=== PATIENT | female | born 1945 | race Caucasian/White ===

== ENCOUNTER 2017-03-10 19:33 | Inpatient (IN) | payer OTHER ==
--- NOTE | 2017-03-10 19:36 | PDOC ---
History of Present Illness - General History Source: Patient, Family Exam Limitations: Other - History of Present Illness Initial Comments: 03/10/17 20:03 The patient is a 71 year old female, with a significant past medical history of hypertension, GERD, and MR, who presents to the emergency department s/p witnessed mechanical injury earlier this evening. As per sister, the patient was walking down 2 steps, when she missed a step, twisted her right leg, but never landed, because she caught the patient before she hit the floor. The patient reports severe right leg/thigh/ hip pain, which is mildly alleviated when bending her knee and laying down. Patient was unable to ambulate s/p injury. Patient denies any head trauma, LOC, changes in vision, neck or back pain. Sister reports patient has a history of a femur fracture(unsure which side ), which had to get surgically repaired 2 years ago. Patient denies any fever, chills, headache, dizziness, or lightheadedness. She denies any chest pain, shortness of breath, diaphoresis, or palpitations. She denies any abdominal pain , nausea, vomiting. Allergies: Sulfamethoxazole, trimethoprim Past Surgical History: Femur fracture repair Social History: Non smoker. No ETOH or recreational drug use. <Carmine Siddiqi - Last Filed: 03/10/17 20:44> <Deisy Hernandez - Last Filed: 03/14/17 01:53> - General Chief Complaint: Injury Stated Complaint: LEG INJURY Time Seen by Provider: 03/10/17 19:36 Past History <Carmine Siddiqi - Last Filed: 03/10/17 20:44> <Deisy Hernandez - Last Filed: 03/14/17 01:53> - Past Medical History Allergies/Adverse Reactions: Allergies Allergy/AdvReac Type Severity Reaction Status Date / Time sulfamethoxazole Allergy Mild Rash Verified 03/10/17 21:12 [From Bactrim] trimethoprim [From Bactrim] Allergy Mild Rash Verified 03/10/17 21:12 Home Medications: Ambulatory Orders C/Sourcherry/Celery/Grape Seed [Tart Manzano Capsule] 2 each PO DAILY 03/10/17 Cholecalciferol (Vitamin D3) [Vitamin D3] 2,000 unit PO DAILY 03/10/17 Citalopram Hydrobromide [Citalopram HBr] 20 mg PO DAILY 03/10/17 Citrucel 03/10/17 Hydrochlorothiazide 25 mg PO DAILY 03/10/17 Hypromellose 0.5% Opth Soln [Artificial Tears] 1 - 2 drop OP DAILY 03/10/17 Magnesium Oxide [Magnesium] 400 mg PO DAILY 03/10/17 Mesalamine [Apriso] 4 cap PO DAILY 03/10/17 Omeprazole 40 mg PO DAILY 03/10/17 Review of Systems - Review of Systems Able to Perform ROS?: Yes Comments:: 03/10/17 20:04 CONSTITUTIONAL: Absent: fever, no chills, no fatigue EYES: Absent: visual changes ENT: Absent: ear pain, no sore throat CARDIOVASCULAR: Absent: chest pain, no palpitations RESPIRATORY: Absent: cough, no SOB GI: Absent: abdominal pain, no nausea, no vomiting, no constipation, no diarrhea GENITOURINARY: Absent: dysuria, no frequency, no hematuria MUSCULOSKELETAL: Present: Right leg pain/thigh/hip pain Absent: back pain, no arthralgia, no myalgia SKIN: Absent: rash NEURO: Absent: headache <Siddiqi,Giomilsy - Last Filed: 03/10/17 20:44> *Physical Exam - Vital Signs Last Vital Signs Temp Pulse Resp BP Pulse Ox 97.5 F L 103 H 18 170/98 97 03/10/17 19:34 03/10/17 19:34 03/10/17 19:34 03/10/17 19:34 03/10/17 19:34 - Physical Exam Comments: 03/10/17 20:04 GENERAL: The patient is awake, alert, and fully oriented, in mild distress. Mildly uncooperative on exam due to pain. HEAD: Normal with no signs of trauma. EYES: Pupils equal, round and reactive to light, extraocular movements intact, sclera anicteric, conjunctiva clear with no pallor. ENT: Ears normal, nares patent, oropharynx clear without exudates. Moist mucous membranes. NECK: Normal range of motion, supple without lymphadenopathy, JVD, or masses. LUNGS: Breath sounds equal, clear to auscultation bilaterally. No wheeze/ crackles. HEART: Regular rate and rhythm, normal S1 and S2 without murmur or rub. ABDOMEN: Soft/nontender/nondistended. BS wnl. No guarding or rebound. No palpable masses. No hepatosplenomegaly. EXTREMITIES: Tenderness of the proximal right thigh/right anterior hip area, RLE is held with knee in flexion, no deformity or edema noted. There is no pelvic tenderness to palpation. Right knee, lower leg, ankle, and foot are nonedematous nontender and with no appreciable deformities. The distal extremity is warm with good capillary refill. DP pulse is nonpalpable. Right foot is not rotate. Limited ROM to RLE secondary to pain. Otherwise, normal ROM at the remainder of the extremities, no edema. No clubbing or cyanosis. No cords , erythema, or tenderness. NEUROLOGICAL: Cranial nerves II through XII grossly intact. Normal speech. PSYCH: Normal mood, normal affect. SKIN: Warm, Dry, normal turgor, no rashes or lesions noted. <Carmine Siddiqi - Last Filed: 03/10/17 20:44> ED Treatment Course - LABORATORY CBC & Chemistry Diagram: 03/13/17 18:00 03/12/17 07:22 <Deisy Hernandez - Last Filed: 03/14/17 01:53> Medical Decision Making - Medical Decision Making Documentation has been prepared under my direction and personally reviewed by me in its entirety. I attest that this documented accurately reflects all work, treatment, procedures and medical decision making performed by me. 03/10/17 21:48 As noted above, this 71-year-old woman with history of hypertension/GERD/mild mental retardation tripped while descending stairs just prior to presentation. Patient twisted her lower body but was caught by her sister and [id number] prior to impacting. However, after the injury, she was unable to bear weight on the right side. Patient has a history of left femur fracture with similar mechanism. Right femur x-ray reveals markedly displaced midshaft right femur fracture. [facility] on-call: Dr. Flores contacted and case discussed with him. Patient will be plan for ORIF tomorrow. The patient is visiting from [place] and has no general medical doctor on staff here. [facility] hospitalist service will be contacted regarding admission and operative clearance Case was discussed with GLEN Del Cid. Patient admitted to the hospitalist service <Deisy Hernandez - Last Filed: 03/14/17 01:53> *DC/Admit/Observation/Transfer - Attestations Scribe Attestion: 03/10/17 20:05 Documentation prepared by Carmine Siddiqi, acting as mobile paramedical examiner for Deisy Hernandez MD. <Carmine Siddiqi - Last Filed: 03/10/17 20:44> - Discharge Dispostion Admit: Yes <Deisy Hernandez - Last Filed: 03/14/17 01:53> Diagnosis at time of Disposition: Right femoral shaft fracture Qualifiers: Encounter type: initial encounter Fracture type: closed Fracture morphology: transverse Fracture alignment: displaced Qualified Code(s): S72.321A - Displaced transverse fracture of shaft of right femur, initial encounter for closed fracture - Discharge Dispostion Condition at time of disposition: Guarded
[2017-03-10 20:00] VITALS: BMI 34.6
[2017-03-10] MEDS ORDERED: morphine CARPU-JECT 2 MG/1 ML DISP.SYRIN IM ONE (20:02)
[2017-03-10] MEDS ORDERED: morphine CARPU-JECT 2 MG/1 ML DISP.SYRIN ONE ×2 (20:06→21:04)
[2017-03-10] MEDS ORDERED: morphine CARPU-JECT 2 MG/1 ML DISP.SYRIN IVPUSH ONE (21:04)
[2017-03-10 21:24] LABS: INR 0.95 (0.82-1.09); PROTHROMBIN TIME (PATIENT) 10.6 SEC (10.2-13.0)
[2017-03-10 21:29] LABS: BASOPHIL 0.4 % (0-2.0); EOSINOPHIL 1.8 % (0-4.5); MCH 29.2 pg (25.7-33.7); MCHC 33.4 g/dl (32.0-36.0); MEAN CELL VOLUME 87.6 fl (80-96); MEAN PLT VOLUME 8.8 fl (7.5-11.1); NEUTROPHILS 82.9 % (42.8-82.8); PLATELET COUNT 239 K/MM3 (134-434); RDW 13.9 % (11.6-15.6)
[2017-03-10 21:38] LABS: ALK PHOS 79 U/L (32-92); ANION GAP 9 (8-16); BILIRUBIN,TOTAL 0.5 mg/dl (0.2-1.0); CALCIUM 9.7 mg/dl (8.4-10.2); CO2 21 mmol/L (22-28); CPK 110 IU/L (26-192); CREATININE 1.1 mg/dl (0.6-1.3); GLUCOSE,RANDOM 159 mg/dl (74-106); SGOT/AST 19 U/L (10-42); SGPT/ALT 15 U/L (10-40); TOT PROT 7.3 g/dl (6.4-8.3)
[2017-03-10 21:40] LABS: PH,URINE 5.5 (4.5-8); URINE APPEARANCE Clear; URINE BILIRUBIN Negative (NEGATIVE); URINE GLUCOSE (UA) Negative (NEGATIVE); URINE KETONE Negative (NEGATIVE); URINE LEUK ESTERASE Negative (NEGATIVE); URINE NITRITE Negative (NEGATIVE); URINE PROTEIN Negative (NEGATIVE); URINE UROBILINOGEN 0.2 (0.2-1.0)
[2017-03-10 21:42] LABS: URINE BLOOD Trace-intact (NEGATIVE); URINE COLOR YELLOW
[2017-03-10 21:56] LABS: URINE WBC 0-2 (0-5)
[2017-03-10 21:58] LABS: TROPONIN I (DFP) < 0.03 ng/ml (0.03-0.50)
[2017-03-10] MEDS ORDERED: morphine SULFATE 4 MG/ML VIAL ONE (22:13)
[2017-03-10] MEDS ORDERED: morphine CARPU-JECT 4 MG/1 ML DISP.SYRIN IVPUSH ONE (22:16)
--- NOTE | 2017-03-10 23:29 | HP ---
CHIEF COMPLAINT: right leg pain s/p twisting injury PCP: not on staff HISTORY OF PRESENT ILLNESS: This is a 71 year old female, with a significant past medical history of hypertension, GERD, and MR, who presents to the emergency department s/p witnessed mechanical injury earlier this evening. Per sister, the patient was walking down 2 steps, when she missed a step, twisted her right leg, but never fell because she caught the patient before she hit the floor. The patient reports severe right leg/thigh/ hip pain, which is mildly alleviated when bending her knee and laying down. Patient was unable to ambulate s/p injury. Patient denies any head trauma, LOC, changes in vision, neck or back pain. Sister reports patient has a history of a femur fracture( unsure which side), which had to get surgically repaired 2 years ago. Patient denies any fever, chills, headache, dizziness, or lightheadedness. She denies any chest pain, shortness of breath, diaphoresis, or palpitations. She denies any abdominal pain, nausea, vomiting. ER course was notable for: (1) Right mid-shaft femur fracture (2) Leukocytosis Recent Travel: denies PAST MEDICAL HISTORY: see HPI PAST SURGICAL HISTORY: see HPI Social History: Smoking: denies Alcohol: denies Drugs: denies Family History: Allergies sulfamethoxazole [From Bactrim] Allergy (Mild, Verified 03/10/17 21:12) Rash trimethoprim [From Bactrim] Allergy (Mild, Verified 03/10/17 21:12) Rash HOME MEDICATIONS: Home Medications Medication Instructions Recorded C/Sourcherry/Celery/Grape Seed 2 each PO DAILY 03/10/17 [Tart Manzano Capsule] Cholecalciferol (Vitamin D3) 2,000 unit PO DAILY 03/10/17 [Vitamin D3] Citalopram Hydrobromide 20 mg PO DAILY 03/10/17 [Citalopram HBr] Citrucel 03/10/17 Hydrochlorothiazide 25 mg PO DAILY 03/10/17 Hypromellose 0.5% Opth Soln 1 - 2 drop OP DAILY 03/10/17 [Artificial Tears] Magnesium Oxide [Magnesium] 400 mg PO DAILY 03/10/17 Mesalamine [Apriso] 4 cap PO DAILY 03/10/17 Omeprazole 40 mg PO DAILY 03/10/17 REVIEW OF SYSTEMS CONSTITUTIONAL: Absent: fever, chills, diaphoresis, generalized weakness, malaise, loss of appetite, weight change HEENT: Absent: rhinorrhea, nasal congestion, throat pain, throat swelling, difficulty swallowing, mouth swelling, ear pain, eye pain, visual changes CARDIOVASCULAR: Absent: chest pain, syncope, palpitations, irregular heart rate, lightheadedness , peripheral edema RESPIRATORY: Absent: cough, shortness of breath, dyspnea with exertion, orthopnea, wheezing, stridor, hemoptysis GASTROINTESTINAL: Absent: abdominal pain, abdominal distension, nausea, vomiting, diarrhea, constipation, melena, hematochezia GENITOURINARY: Absent: dysuria, frequency, urgency, hesitancy, hematuria, flank pain, genital pain MUSCULOSKELETAL: Present- right leg pain Absent: myalgia, arthralgia, joint swelling, back pain, neck pain SKIN: Absent: rash, itching, pallor HEMATOLOGIC/IMMUNOLOGIC: Absent: easy bleeding, easy bruising, lymphadenopathy, frequent infections ENDOCRINE: Absent: unexplained weight gain, unexplained weight loss, heat intolerance, cold intolerance NEUROLOGIC: Absent: headache, focal weakness or paresthesias, dizziness, unsteady gait, seizure, mental status changes, bladder or bowel incontinence PSYCHIATRIC: Absent: anxiety, depression, suicidal or homicidal ideation, hallucinations. PHYSICAL EXAMINATION Vital Signs - 24 hr 03/10/17 19:34 Temperature 97.5 F L Pulse Rate 103 H Respiratory 18 Rate Blood Pressure 170/98 O2 Sat by Pulse 97 Oximetry (%) GENERAL: Awake, alert, and fully oriented, in no acute distress. Uncooperative with exam. HEAD: Normal with no signs of trauma. EYES: Pupils equal, round and reactive to light, extraocular movements intact, sclera anicteric, conjunctiva clear. No lid lag. EARS, NOSE, THROAT: Ears normal, nares patent, oropharynx clear without exudates. Moist mucous membranes. NECK: Normal range of motion, supple without lymphadenopathy, JVD, or masses. LUNGS: Breath sounds equal, clear to auscultation bilaterally. No wheezes, and no crackles. No accessory muscle use. HEART: Regular rate and rhythm, normal S1 and S2 without murmur, rub or gallop. ABDOMEN: Soft, nontender, not distended, normoactive bowel sounds, no guarding, no rebound, no masses. No hepatomegaly or splenomegaly. MUSCULOSKELETAL: Decreased range of motion at all joints. Bony deformity to right thigh. Right lower extremity shortened and externally rotated. No CVA tenderness. UPPER EXTREMITIES: 2+ pulses, warm, well-perfused. No cyanosis. No clubbing. No peripheral edema. LOWER EXTREMITIES: 2+ pulses, warm, well-perfused. No calf tenderness. No peripheral edema. Bony deformity to right thigh. Right lower extremity shortened and externally rotated. Neuromuscular status intact. NEUROLOGICAL: Cranial nerves II-XII intact. Normal speech. Normal gait. PSYCHIATRIC: Cooperative. Good eye contact. Appropriate mood and affect. SKIN: Warm, dry, normal turgor, no rashes or lesions noted, normal capillary refill. Laboratory Results - last 24 hr 03/10/17 03/10/17 03/10/17 20:50 20:50 20:50 WBC 12.0 H RBC 4.42 Hgb 12.9 Hct 38.7 MCV 87.6 MCH 29.2 MCHC 33.4 RDW 13.9 Plt Count 239 MPV 8.8 Neutrophils % 82.9 H Lymphocytes % 9.7 Monocytes % 5.2 Eosinophils % 1.8 Basophils % 0.4 PT with INR 10.6 INR 0.95 L Sodium 137 Potassium 3.6 Chloride 107 Carbon Dioxide 21 L Anion Gap 9 BUN 28 H Creatinine 1.1 Creat Clearance w eGFR 48.96 Random Glucose 159 H Calcium 9.7 Total Bilirubin 0.5 AST 19 ALT 15 Alkaline Phosphatase 79 Creatine Kinase 110 Troponin I < 0.03 L Total Protein 7.3 Albumin 4.0 Urine Color Urine Appearance Urine pH Ur Specific [place] Urine Protein Urine Glucose (UA) Urine Ketones Urine Blood Urine Nitrite Urine Bilirubin Urine Urobilinogen Ur Leukocyte Esterase Urine RBC Urine WBC Ur Epithelial Cells Amorphous Phosphates Blood Type Antibody Screen 03/10/17 03/10/17 03/10/17 20:50 20:50 21:20 WBC RBC Hgb Hct MCV MCH MCHC RDW Plt Count MPV Neutrophils % Lymphocytes % Monocytes % Eosinophils % Basophils % PT with INR INR Sodium Potassium Chloride Carbon Dioxide Anion Gap BUN Creatinine Creat Clearance w eGFR Random Glucose Calcium Total Bilirubin AST ALT Alkaline Phosphatase Creatine Kinase Troponin I Total Protein Albumin Urine Color Yellow Urine Appearance Clear Urine pH 5.5 Ur Specific [place] 1.015 Urine Protein Negative Urine Glucose (UA) Negative Urine Ketones Negative Urine Blood Trace-intact H Urine Nitrite Negative Urine Bilirubin Negative Urine Urobilinogen 0.2 Ur Leukocyte Esterase Negative Urine RBC 2-4 Urine WBC 0-2 Ur Epithelial Cells Few Amorphous Phosphates Few Blood Type A POSITIVE A POSITIVE Antibody Screen Negative Imaging: All films reviewed. ASSESSMENT/PLAN: A: 71yo woman with right mid-shaft femur fracture s/p twisting injury. No contraindications for surgery. P: Right mid-shaft femur fracture - Scheduled for ORIF in AM - NPO after MN - NS@125cc/hr - bedrest - Dilaudid 1mg IVP q4h prn Leukocytosis - likely reactive - will trend HTN - elevated ?pain - home HCTZ - re-evaluate after surgery GERD -continue home regimine F/E/N - NPO - NS@125cc/hr PPX - sqh Dispo- patient for OR in AM for ORIF of right femur. Visit type - Emergency Visit Emergency Visit: Yes ED Registration Date: 03/10/17 Care time: The patient presented to the Emergency Department on the above date and was hospitalized for further evaluation of their emergent condition. - New Patient This patient is new to me today: Yes Date on this admission: 03/11/17 - Critical Care Critical Care patient: No
[2017-03-10] MEDS ORDERED: HYDROmorphone HCL CARPU-JECT 1 MG/1 ML DISP.SYRIN ONE (23:57)
[2017-03-10] MEDS: SODIUM CHLORIDE 1,000 ML IV SCH (23:59)
[2017-03-10] MEDS: HYDROmorphone HCL CARPU-JECT 1 MG/1 ML DISP.SYRIN IVPUSH PRN (23:59)
[2017-03-11] MEDS: HYDROmorphone HCL CARPU-JECT 1 MG/1 ML DISP.SYRIN IVPUSH PRN ×5 (03:23→21:48)
[2017-03-11] MEDS: HEPARIN NA (PORCINE) 5,000 UNITS/ML 1ML VIAL SQ SCH ×2 (09:25→21:49)
--- NOTE | 2017-03-11 11:58 | CON.ORTH ---
Consult Consult Specialty:: orthopedics Reason for Consultation:: right femur fracture - History of Present Illness Chief Complaint: right femur pain and deformity History of Present Illness: This is a pleasant 71-year-old female who was admitted after suffering a mechanical fall. She was found to have a right femur fracture. She is complaining only of pain in the right femur. She is complaining of no pain elsewhere. She denies any radiating pain, numbness or tingling. Her history is significant for a contralateral femur fracture fixed with an intramedullary nail. This was 2 years ago. 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) Cardio/Vascular: Yes: HTN Gastrointestinal: Yes: GERD ...LMP Comment: 71 YEAR OLD ...: No - Past Surgical History Additional Surgical History: IM nail Left femur - Alcohol/Substance Use Hx Alcohol Use: No - Smoking History Smoking history: Former smoker Have you smoked in the past 12 months: No Home Medications - Allergies Allergies/Adverse Reactions: Allergies Allergy/AdvReac Type Severity Reaction Status Date / Time sulfamethoxazole Allergy Mild Rash Verified 03/10/17 21:12 [From Bactrim] trimethoprim [From Bactrim] Allergy Mild Rash Verified 03/10/17 21:12 - Home Medications Home Medications: Ambulatory Orders C/Sourcherry/Celery/Grape Seed [Tart Manzano Capsule] 2 each PO DAILY 03/10/17 Cholecalciferol (Vitamin D3) [Vitamin D3] 2,000 unit PO DAILY 03/10/17 Citalopram Hydrobromide [Citalopram HBr] 20 mg PO DAILY 03/10/17 Citrucel 03/10/17 Hydrochlorothiazide 25 mg PO DAILY 03/10/17 Hypromellose 0.5% Opth Soln [Artificial Tears] 1 - 2 drop OP DAILY 03/10/17 Magnesium Oxide [Magnesium] 400 mg PO DAILY 03/10/17 Mesalamine [Apriso] 4 cap PO DAILY 03/10/17 Omeprazole 40 mg PO DAILY 03/10/17 Physical Exam for Ortho Vital Signs: Vital Signs Temperature 98.2 F 03/11/17 06:41 Pulse Rate 100 H 03/11/17 06:41 Respiratory Rate 19 03/11/17 06:41 Blood Pressure 133/83 03/11/17 06:41 O2 Sat by Pulse Oximetry (%) 97 03/10/17 19:34 Constitutional: Yes: Well Nourished, No Distress, Calm Respiratory: Yes: Regular Extremities: Yes: Deformity, External Rotation, Shortened, Other (calf is soft, NT, sensation is intact to LT, 2+ dp pulse, ehl fhl ta g s intact but weak) Neurological: Yes: Alert, Oriented Labs: CBC, BMP 03/10/17 20:50 03/10/17 20:50 INR, PTT INR 0.95 (0.82-1.09) L 03/10/17 20:50 - Lower Extremity Knee: No: Tenderness Ankle: No: Tenderness Imaging - Results X-ray: Report Reviewed (displaced mid shaft femoral fracture), Image Reviewed Problem List - Problems (1) Right femoral shaft fracture Code(s): S72.301A - UNSP FRACTURE OF SHAFT OF RIGHT FEMUR, INIT FOR CLOS FX Qualifiers: Encounter type: initial encounter Fracture type: closed Fracture morphology: transverse Fracture alignment: displaced Qualified Code(s): S72.321A - Displaced transverse fracture of shaft of right femur, initial encounter for closed fracture Assessment/Plan I reviewed today's findings with Kayla. We discussed that there is a displaced fracture of the femur. This is typically treated operatively to provide for mobilization, pain relief and return to ambulatory function. We discussed the option of nonoperative management with prolonged bedrest and risk for debilitation, pneumonia, DVT, ulcers. I reviewed the surgery in detail. This involves utilizing a metal haris help repair the fracture. This will allow the bone to heal in the correct alignment. Depending on the degree of injury and fracture alignment, partial or full weight bearing may be allowed. We reviewed surgical risks in detail including bleeding, infection, neurovascular injury, need for further surgery, postoperative pain and stiffness, nonunion, malunion, hardware cutout or failure , posttraumatic arthrosis. We discussed medical risks such as heart attack, stroke, DVT, PE and . We discussed the use of perioperative DVT and antibiotic prophylaxis. I discussed the post operative protocol. I addressed all of Kayla's questions. She would like to proceed surgically. We will proceed with surgery as soon as possible.
--- NOTE | 2017-03-11 12:59 | EKG ---
Test Reason : Blood Pressure : / mmHG Vent. Rate : 095 BPM Atrial Rate : 095 BPM P-R Int : 142 ms QRS Dur : 088 ms QT Int : 376 ms P-R-T Axes : 068 056 042 degrees QTc Int : 472 ms NORMAL SINUS RHYTHM NO PREVIOUS ECGS AVAILABLE Confirmed by DONOVAN WELLS MD ([id number]) on 03/11/2017 12:59:35 PM Referred By: DR GARCIA Confirmed By:DONOVAN WELLS MD
--- NOTE | 2017-03-11 13:45 | OP ---
Operative Note - Note: Operative Date: 03/11/17 Pre-Operative Diagnosis: left femoral shaft fracture Operation: left femur IM nail Implants: anna T2 femoral nail Post-Operative Diagnosis: Same as Pre-op Surgeon: Luke Shelby [employer] Estimator: Rodrigo Flores I Anesthesia: General Estimated Blood Loss (mls): 150 Operative Report Dictated: Yes
[2017-03-11] MEDS ORDERED: ONDANSETRON 4 MG/2 ML VIAL IVPUSH PRN (13:46)
[2017-03-11] MEDS ORDERED: MIDAZOLAM HCL 2 MG/2 ML SINGLE DOSE VIAL ONE (13:56)
[2017-03-11] MEDS ORDERED: LACTATED RINGERS SOLUTION 1,000 ML IV SCH (14:00)
[2017-03-11] MEDS ORDERED: ONDANSETRON 4 MG/2 ML VIAL ONE (14:42)
[2017-03-11] MEDS ORDERED: DEXAMETHASONE SOD PHOSPHATE 4 MG/1 ML VIAL ONE (14:42)
[2017-03-11] MEDS ORDERED: ceFAZolin SODIUM 1 GM VIAL ONE (14:42)
[2017-03-11] MEDS ORDERED: PROPOFOL 20 ML ONE (14:45)
[2017-03-11] MEDS ORDERED: DESFLURANE GAS 240 ML BOTTLE IH ONE (15:59)
[2017-03-11] MEDS ORDERED: TRANEXAMIC ACID 1000 MG/10 ML VIAL ONE (16:43)
--- NOTE | 2017-03-11 20:36 | PN ---
Physical Exam: SUBJECTIVE: Patient seen and examined at bedside. Surgery earlier today to repair right femoral shaft fracture. Complaining of mild pain at surgical site. OBJECTIVE: Vital Signs Period Temp Pulse Resp BP Sys/Gross Pulse Ox Last 24 Hr 97.7 F-98.6 F 100-121 15-22 101-148/70-90 92-96 GENERAL: The patient is awake and A&Ox2. In no acute distress. LUNGS: Anterior breath sounds CTA, would not allow further exam HEART: Regular rate and rhythm, S1, S2 without murmur, rub or gallop. ABDOMEN: Soft, nontender, nondistended, normoactive bowel sounds, no guarding, no rebound EXTREMITIES: 2+ pulses, warm, well-perfused, no edema. Right lateral thigh surgical dressing c/d/i NEUROLOGICAL: Cranial nerves II through XII grossly intact. PSCH: Developmentally delayed, easily distracted, becomes agitated with medical interventions. SKIN: Warm, dry, normal turgor Laboratory Results - last 24 hr 03/10/17 03/10/17 03/10/17 20:50 20:50 20:50 WBC 12.0 H RBC 4.42 Hgb 12.9 Hct 38.7 MCV 87.6 MCH 29.2 MCHC 33.4 RDW 13.9 Plt Count 239 MPV 8.8 Neutrophils % 82.9 H Lymphocytes % 9.7 Monocytes % 5.2 Eosinophils % 1.8 Basophils % 0.4 PT with INR 10.6 INR 0.95 L Sodium 137 Potassium 3.6 Chloride 107 Carbon Dioxide 21 L Anion Gap 9 BUN 28 H Creatinine 1.1 Creat Clearance w eGFR 48.96 Random Glucose 159 H Calcium 9.7 Total Bilirubin 0.5 AST 19 ALT 15 Alkaline Phosphatase 79 Creatine Kinase 110 Troponin I < 0.03 L Total Protein 7.3 Albumin 4.0 Urine Color Urine Appearance Urine pH Ur Specific [place] Urine Protein Urine Glucose (UA) Urine Ketones Urine Blood Urine Nitrite Urine Bilirubin Urine Urobilinogen Ur Leukocyte Esterase Urine RBC Urine WBC Ur Epithelial Cells Amorphous Phosphates Blood Type Antibody Screen 03/10/17 03/10/17 03/10/17 20:50 20:50 21:20 WBC RBC Hgb Hct MCV MCH MCHC RDW Plt Count MPV Neutrophils % Lymphocytes % Monocytes % Eosinophils % Basophils % PT with INR INR Sodium Potassium Chloride Carbon Dioxide Anion Gap BUN Creatinine Creat Clearance w eGFR Random Glucose Calcium Total Bilirubin AST ALT Alkaline Phosphatase Creatine Kinase Troponin I Total Protein Albumin Urine Color Yellow Urine Appearance Clear Urine pH 5.5 Ur Specific [place] 1.015 Urine Protein Negative Urine Glucose (UA) Negative Urine Ketones Negative Urine Blood Trace-intact H Urine Nitrite Negative Urine Bilirubin Negative Urine Urobilinogen 0.2 Ur Leukocyte Esterase Negative Urine RBC 2-4 Urine WBC 0-2 Ur Epithelial Cells Few Amorphous Phosphates Few Blood Type A POSITIVE A POSITIVE Antibody Screen Negative Current Medications Generic Name Dose Route Start Last Admin Trade Name Freq PRN Reason Stop Dose Admin Artificial Tears 1 drop 03/12/17 00:09 Artificial Tears OU TID PRN DRY EYES Citalopram Hydrobromide 20 mg 03/12/17 10:00 Celexa - PO DAILY [facility] Heparin Sodium (Porcine) 5,000 unit 03/12/17 06:00 Heparin - SQ TID MARIAM Hydrochlorothiazide 25 mg 03/12/17 10:00 Hctz - PO DAILY [facility] Hydromorphone HCl 1 mg 03/10/17 23:51 03/11/17 21:48 Dilaudid Injection - IVPUSH 1 mg Q4H PRN Administration PAIN Magnesium Oxide 400 mg 03/12/17 10:00 Mag-Ox - PO DAILY [facility] Mesalamine 800 mg 03/12/17 10:00 Asacol Hd - PO DAILY [facility] Pantoprazole Sodium 40 mg 03/12/17 10:00 Protonix - PO DAILY [facility] ASSESSMENT/PLAN 71 year-old female, with a PMH significant for HTN, GERD, and developmental delay. Admitted for right mid-shaft femur fracture. Right mid-shaft femur fracture s/p ORIF repair with [place] T2 femoral nail on 03/11 --surgical dressing c/d/i --pain well-managed, convert to PO pain meds in am Hypertension --normotensive --continue HCTZ GERD --continue Protonix, mesalamine Developmental delay Periods of agitation --continue celexa F/E/N Fluids: PO intake adequate Electrolytes: replete as indicated Nutrition: low sodium DVT prophylaxis: subq heparin Physical therapy evaluation Dispo: continues to require inpatient care. Full Code. Visit type - Emergency Visit Emergency Visit: Yes ED Registration Date: 03/10/17 Care time: The patient presented to the Emergency Department on the above date and was hospitalized for further evaluation of their emergent condition. - New Patient This patient is new to pa today: Yes Date on this admission: 03/12/17 - Critical Care Critical Care patient: No
[2017-03-12] MEDS: SODIUM CHLORIDE 1,000 ML IV SCH (00:03)
[2017-03-12] MEDS ORDERED: ARTIFICIAL TEARS (POLYVINYL ALCOHOL 1.4%) OPTH DROPS OU PRN (00:09)
[2017-03-12] MEDS ORDERED: ACETAMINOPHEN 325 MG TABLET (FP) ONE (00:31)
[2017-03-12] MEDS: ACETAMINOPHEN 325 MG TABLET (FP) PO PRN ×2 (00:39→21:40)
[2017-03-12] MEDS ORDERED: LORazepam 0.5 MG TABLET PO ONE (01:31)
[2017-03-12] MEDS: HYDROmorphone HCL CARPU-JECT 1 MG/1 ML DISP.SYRIN IVPUSH PRN ×5 (02:15→21:15)
[2017-03-12] MEDS: HEPARIN NA (PORCINE) 5,000 UNITS/ML 1ML VIAL SQ SCH ×3 (06:19→21:15)
[2017-03-12 07:53] LABS: ALK PHOS 53 U/L (32-92); ANION GAP 7 (8-16); BILIRUBIN,TOTAL 0.8 mg/dl (0.2-1.0); CALCIUM 7.5 mg/dl (8.4-10.2); CO2 24 mmol/L (22-28); CREATININE 1.2 mg/dl (0.6-1.3); GLUCOSE,RANDOM 129 mg/dl (74-106); MAGNESIUM 1.3 mg/dL (1.8-2.4); SGOT/AST 73 U/L (10-42); SGPT/ALT 23 U/L (10-40); TOT PROT 5.6 g/dl (6.4-8.3)
[2017-03-12] MEDS: MAGNESIUM OXIDE 400 MG TABLET (FP) PO SCH (09:53)
[2017-03-12] MEDS: CITALOPRAM HYDROBROMIDE 20 MG TABLET (FP) PO SCH (09:54)
[2017-03-12] MEDS: PANTOPRAZOLE 40 MG TABLET (FP) PO SCH (09:54)
[2017-03-12] MEDS: HYDROCHLOROTHIAZIDE 25 MG TABLET (FP) PO SCH (09:54)
[2017-03-12] MEDS: MESALAMINE 800 MG TABLET.DR PO SCH (09:56)
[2017-03-12] MEDS ORDERED: MESALAMINE PO SCH (10:00)
[2017-03-12] MEDS ORDERED: ARTIFICIAL TEARS (POLYVINYL ALCOHOL 1.4%) OPTH DROPS OU SCH (10:00)
--- NOTE | 2017-03-12 11:52 | PN ---
Physical Exam: SUBJECTIVE: Patient seen and examined OBJECTIVE: Vital Signs Period Temp Pulse Resp BP Sys/Gross Pulse Ox Last 24 Hr 97.7 F-98.8 F 100-121 15-22 101-148/59-90 92-96 GENERAL: The patient is awake, alert, and fully oriented, in no acute distress. HEAD: Normal with no signs of trauma. EYES: PERRL, extraocular movements intact, sclera anicteric, conjunctiva clear. No ptosis. ENT: Ears normal, nares patent, oropharynx clear without exudates, moist mucous membranes. NECK: Trachea midline, full range of motion, supple. LUNGS: Breath sounds equal, clear to auscultation bilaterally, no wheezes, no crackles, no accessory muscle use. HEART: Regular rate and rhythm, S1, S2 without murmur, rub or gallop. ABDOMEN: Soft, nontender, nondistended, normoactive bowel sounds, no guarding, no rebound, no hepatosplenomegaly, no masses. EXTREMITIES: 2+ pulses, warm, well-perfused, no edema. NEUROLOGICAL: Cranial nerves II through XII grossly intact. Normal speech, gait not observed. PSYCH: Normal mood, normal affect. SKIN: Warm, dry, normal turgor, no rashes or lesions noted Laboratory Results - last 24 hr 03/12/17 07:22 Sodium 136 Potassium 3.9 Chloride 105 Carbon Dioxide 24 Anion Gap 7 L BUN 26 H Creatinine 1.2 Creat Clearance w eGFR 44.29 Random Glucose 129 H Calcium 7.5 L D Magnesium 1.3 L Total Bilirubin 0.8 D AST 73 H D ALT 23 D Alkaline Phosphatase 53 D Total Protein 5.6 L D Albumin 3.0 L D Active Medications Generic Name Dose Route Start Last Admin Trade Name Freq PRN Reason Stop Dose Admin Acetaminophen 650 mg 03/12/17 00:29 03/12/17 00:39 Tylenol - PO 650 mg Q6H PRN Administration FEVER OR PAIN Artificial Tears 1 drop 03/12/17 00:09 Artificial Tears OU TID PRN DRY EYES Citalopram Hydrobromide 20 mg 03/12/17 10:00 03/12/17 09:54 Celexa - PO 20 mg DAILY MARIAM Administration Heparin Sodium (Porcine) 5,000 unit 03/12/17 06:00 03/12/17 06:19 Heparin - SQ 5,000 unit TID MARIAM Administration Hydrochlorothiazide 25 mg 03/12/17 10:00 03/12/17 09:54 Hctz - PO 25 mg DAILY MARIAM Administration Hydromorphone HCl 1 mg 03/10/17 23:51 03/12/17 06:19 Dilaudid Injection - IVPUSH 1 mg Q4H PRN Administration PAIN Magnesium Oxide 400 mg 03/12/17 10:00 03/12/17 09:53 Mag-Ox - PO 400 mg DAILY MARIAM Administration Mesalamine 800 mg 03/12/17 10:00 03/12/17 09:56 Asacol Hd - PO 800 mg DAILY MARIAM Administration Pantoprazole Sodium 40 mg 03/12/17 10:00 03/12/17 09:54 Protonix - PO 40 mg DAILY MARIAM Administration ASSESSMENT/PLAN: A: 71yo woman with right mid-shaft femur fracture s/p twisting injury. POD#1 P: Right mid-shaft femur fracture - ORIF done 03/11 - Dilaudid 1mg IVP q4h prn - appreciate ortho Leukocytosis - likely reactive - will trend HTN - normotensive - home HCTZ Developmental delay - Celexa GERD - Protonix - Mesalamine F/E/N - Low Na diet PPX - sqh Dispo- Will need STR placement prior to discharge. Visit type - Emergency Visit Emergency Visit: Yes ED Registration Date: 03/10/17 Care time: The patient presented to the Emergency Department on the above date and was hospitalized for further evaluation of their emergent condition. - New Patient This patient is new to me today: No - Critical Care Critical Care patient: No
--- NOTE | 2017-03-12 13:55 | PN ---
Progress Note (short form) - Note Progress Note: She states she is feeling well. She is resting comfortably with her sister at bedside. She states she is having a little bit of pain in the leg but not too bad. Afebrile RIGHT lower extremity: Wounds look good. No evidence of infection. Minimal edema. No calf tenderness. Good plantar flexion and dorsiflexion of ankle and 2+ pulses and neurovascularly intact distally. Impression: Doing very well postop day #1 RIGHT femur ORIF Plan: Out of bed, physical therapy, SCD boots, DVT prophylaxis
[2017-03-12] MEDS: ENOXAPARIN NA (PORCINE) 30 MG/0.3 ML DISP.SYRIN SQ SCH (22:56)
[2017-03-12] MEDS: CALCIUM 500MG/VIT-D 200 UNITS COMBO TABLET (FP) PO SCH (22:59)
[2017-03-13] MEDS: HYDROmorphone HCL CARPU-JECT 1 MG/1 ML DISP.SYRIN IVPUSH PRN ×3 (03:11→19:04)
[2017-03-13 08:40] LABS: MCH 30.2 pg (25.7-33.7); MCHC 34.2 g/dl (32.0-36.0); MEAN CELL VOLUME 88.5 fl (80-96); PLATELET COUNT 151 K/MM3 (134-434); RDW 13.8 % (11.6-15.6); WHITE BLOOD COUNT 8.6 K/mm3 (4.0-10.8)
--- NOTE | 2017-03-13 09:33 | PN ---
Physical Exam: SUBJECTIVE: Patient seen and examined Pt c/o Rt thigh pain, s/p sx, no other complains. OBJECTIVE: Vital Signs Period Temp Pulse Resp BP Sys/Gross Pulse Ox Last 24 Hr 98.8 F-101.1 F 93-110 18-20 97-110/51-59 94-96 GENERAL: The patient is awake, alert,oriented x2 in no acute distress. HEAD: Normal with no signs of trauma. EYES: PERRL, extraocular movements intact, sclera anicteric, conjunctiva clear. No ptosis. ENT: Ears normal, nares patent, oropharynx clear without exudates, moist mucous membranes. NECK: Trachea midline, full range of motion, supple. LUNGS: Breath sounds equal, clear to auscultation bilaterally, no wheezes, no crackles, no accessory muscle use. HEART: Regular rate and rhythm, S1, S2 without murmur, rub or gallop. ABDOMEN: Soft, nontender, nondistended, normoactive bowel sounds, no guarding, no rebound, no hepatosplenomegaly, no masses. EXTREMITIES: 2+ pulses, warm, well-perfused, no edema. R thigh dsg intact NEUROLOGICAL: Cranial nerves II through XII grossly intact. Normal speech, gait not observed. PSYCH: Normal mood, normal affect. SKIN: Warm, dry, normal turgor, no rashes or lesions noted Laboratory Results - last 24 hr 03/13/17 06:00 WBC 8.6 RBC 2.65 L D Hgb 8.0 L D Hct 23.4 L D MCV 88.5 MCH 30.2 MCHC 34.2 RDW 13.8 Plt Count 151 D MPV 9.0 Active Medications Generic Name Dose Route Start Last Admin Trade Name Freq PRN Reason Stop Dose Admin Acetaminophen 650 mg 03/12/17 00:29 03/12/17 21:40 Tylenol - PO 650 mg Q6H PRN Administration FEVER OR PAIN Artificial Tears 1 drop 03/12/17 00:09 Artificial Tears OU TID PRN DRY EYES Calcium Carbonate/Cholecalciferol 1 tab 03/12/17 22:30 03/12/17 22:59 Os-Wally 500+D - PO 1 tab BID MARIAM Administration Citalopram Hydrobromide 20 mg 03/12/17 10:00 03/12/17 09:54 Celexa - PO 20 mg DAILY MARIAM Administration Enoxaparin Sodium 30 mg 03/12/17 22:30 03/12/17 22:56 Lovenox - SQ Not Given Q12H MARIAM Hydrochlorothiazide 25 mg 03/12/17 10:00 03/12/17 09:54 Hctz - PO 25 mg DAILY MARIAM Administration Hydromorphone HCl 1 mg 03/10/17 23:51 03/13/17 03:11 Dilaudid Injection - IVPUSH 1 mg Q4H PRN Administration PAIN Magnesium Oxide 400 mg 03/12/17 10:00 03/12/17 09:53 Mag-Ox - PO 400 mg DAILY MARIAM Administration Mesalamine 800 mg 03/12/17 10:00 03/12/17 09:56 Asacol Hd - PO 800 mg DAILY MARIAM Administration Pantoprazole Sodium 40 mg 03/12/17 10:00 03/12/17 09:54 Protonix - PO 40 mg DAILY MARIAM Administration ASSESSMENT/PLAN: This is a 71yo woman with right mid-shaft femur fracture s/p twisting injury. *Right mid-shaft femur fracture - ORIF done 03/11,POD#2 - Dilaudid 1mg IVP q4h prn - Ortho following - PT *Leukocytosis- likely reactive- resolved * Blood loss Anemia- likely secondary to sx - asymptomatic - will add Fe pills - will trend CBC *HTN- BP stable - will resume home HCTZ *Hypomagnesemia - Mg 1.3 - will replace Mg - will cont on Mg Oxide *Developmental delay/? depression - Celexa *GERD - Protonix - Mesalamine *F/E/N - Low Na diet PPX - sqh Dispo- Will need STR placement prior to discharge. Visit type - Emergency Visit Emergency Visit: Yes ED Registration Date: 03/10/17 Care time: The patient presented to the Emergency Department on the above date and was hospitalized for further evaluation of their emergent condition. - New Patient This patient is new to me today: Yes Date on this admission: 03/13/17 - Critical Care Critical Care patient: No
[2017-03-13] MEDS: CITALOPRAM HYDROBROMIDE 20 MG TABLET (FP) PO SCH (09:34)
[2017-03-13] MEDS: MAGNESIUM OXIDE 400 MG TABLET (FP) PO SCH (09:34)
[2017-03-13] MEDS: CALCIUM 500MG/VIT-D 200 UNITS COMBO TABLET (FP) PO SCH ×2 (09:34→22:53)
[2017-03-13] MEDS: HYDROCHLOROTHIAZIDE 25 MG TABLET (FP) PO SCH (09:34)
[2017-03-13] MEDS: ENOXAPARIN NA (PORCINE) 30 MG/0.3 ML DISP.SYRIN SQ SCH ×2 (09:34→22:53)
[2017-03-13] MEDS: PANTOPRAZOLE 40 MG TABLET (FP) PO SCH (09:34)
[2017-03-13] MEDS ORDERED: MAGNESIUM SULF 50% (8.12 MEQ/2 ML-1 GM VIAL) IVPB ONE (09:59)
[2017-03-13] MEDS: MESALAMINE 800 MG TABLET.DR PO SCH ×2 (10:29→11:40)
[2017-03-13] MEDS: FE POLYSAC/CYANOCOBAL/FA COMBO CAPSULE PO SCH ×2 (10:35→11:40)
--- NOTE | 2017-03-13 14:01 | PN ---
Progress Note (short form) - Note Progress Note: She states she is feeling well. walked with physical therapy. She is resting comfortably with her sister at bedside. She states she is having a little bit of pain in the leg but not too bad. Afebrile RIGHT lower extremity: Wounds look good. No evidence of infection. Minimal edema. No calf tenderness. Good plantar flexion and dorsiflexion of ankle and 2+ pulses and neurovascularly intact distally. Impression: Doing very well postop day #2 RIGHT femur ORIF Plan: Out of bed, physical therapy, SCD boots, DVT prophylaxis, rehabilitation transfer planning
[2017-03-13 18:39] LABS: BASOPHIL 0.4 % (0-2.0); MCH 28.9 pg (25.7-33.7); MCHC 33.1 g/dl (32.0-36.0); MEAN CELL VOLUME 87.4 fl (80-96); MEAN PLT VOLUME 8.4 fl (7.5-11.1); NEUTROPHILS 80.5 % (42.8-82.8); PLATELET COUNT 185 K/MM3 (134-434); RDW 13.9 % (11.6-15.6); WHITE BLOOD COUNT 9.6 K/mm3 (4.0-10.8)
[2017-03-13] MEDS: ACETAMINOPHEN 325 MG TABLET (FP) PO PRN (22:54)
--- NOTE | 2017-03-14 08:30 | PN ---
Progress Note (short form) - Note Progress Note: The patient reports she feels well. No complaints this morning. Physical examination: The patient is afebrile and vital signs are stable. Right lower extremity examination demonstrates intact dressings. They're clean and dry. Calves are soft and nontender. Distal sensation is intact light touch. 2+ DP pulse. 5/5 distal motor. Labs pending. Assessment: Status post right femoral nail Plan: The patient is recovering well from surgery. Continue physical therapy. Continue DVT prophylaxis with low molecular weight heparin for 1 month. Patient is stable for discharge to subacute facility. Problem List - Problems (1) Right femoral shaft fracture Code(s): S72.301A - UNSP FRACTURE OF SHAFT OF RIGHT FEMUR, INIT FOR CLOS FX Qualifiers: Encounter type: initial encounter Fracture type: closed Fracture morphology: transverse Fracture alignment: displaced Qualified Code(s): S72.321A - Displaced transverse fracture of shaft of right femur, initial encounter for closed fracture
--- NOTE | 2017-03-14 08:52 | OP ---
DATE OF OPERATION: 03/11/2017 PREOPERATIVE DIAGNOSIS: Right femoral shaft fracture. POSTOPERATIVE DIAGNOSIS: Right femoral shaft fracture. PROCEDURE: Right femur intramedullary nail. SURGEON: Luke Shelby MD FLOOR ATTENDANT: Rodrigo Flores MD, whose skillful assistance was necessary for the safe and timely performance of this procedure. Dr. Flores was able to help provide retraction, limb positioning, assist in fracture reduction as well as the insertion of orthopedic fixation hardware. ANESTHESIA: General. POSTOPERATIVE CONDITION: Stable. COMPLICATIONS: None. IMPLANTS: Da T2 femoral nail, 320 x 9. INDICATIONS: This is a pleasant woman who suffered a mechanical witnessed fall. She had deformity and pain in the femur afterwards. She was admitted to [facility] and was medically optimized. Of note, she did have a contralateral femur fracture 2 years ago fixed with intramedullary nail and did quite well. The risks, benefits, and alternatives of surgery were discussed with the patient as well as her family. Risks were reviewed including bleeding, infection, neurovascular injury, need for further surgery, postoperative pain and stiffness, nonunion, malunion, hardware failure or cutout. We discussed medical risks such as heart attack, stroke, DVT, PE, and . We discussed the use of perioperative DVT and antibiotic prophylaxis. I addressed all the patient's and her family's questions. They voiced understanding and elected to proceed. DESCRIPTION OF PROCEDURE: The patient was brought to the operating room where general anesthesia was administered. She was placed on the fracture table, careful to pad all the bony prominences. Right lower extremity was brought into gentle traction. At this point, patient was prepped and draped in the usual sterile fashion. A perioperative dose of antibiotics was given, and the usual timeout procedure was performed. The fluoroscopy was then used to determine an optimal starting point for the nail. The incision was now carried down through skin and subcutaneous tissue. Blunt spreading was used to expose the fascia devin which was then splint which was then split in line with the femur. Awl was now used to obtain starting point in the pyriformis fossa. The guidewire was then advanced down the shaft. In order to ensure a smooth opening, the opening reamer was passed after the awl was removed. The guidewire was now inserted down the shaft. Multiple attempts at a closed reduction were made. However, it was not possible to pass the guidewire. The incision was now planned out over the fracture site. This was carried down through skin to subcutaneous tissue. Blunt spreading was used to expose the fascia devin. This again was splint in line with the fibers of the tissue. The muscle was then bluntly dissected away from the bone to expose the fracture site. A small hematoma was evacuated. The fracture was now manually reduced, and actually, we were able to maintain the reduction utilizing the retractors without a fracture reduction clamp. The guidewire was now passed down to the distal end of the femur, center ends in the AP and lateral plane on fluoroscopy. The guidewire was now measured, and a 320 mm now was chosen. While maintaining the fracture reduction, remaining was now started up to the size 9 and progressing up to a size 10.5 where excellent shatter was achieved. The 9 x 320 mm was now chosen and then inserted down the femoral canal. Now the placement was confirmed fluoroscopically and was satisfactory. The guidewire was now removed. Nail was now fixed proximally utilizing 2 [id number] screws. Both screws were inserted through the jig. Trocars were inserted through a small incision laterally and advanced down to the level of bone. They were then drilled, measured, and screws were inserted. The screw placement was verified fluoroscopically in 2 planes and was satisfactory. Attention was now turned distally. Utilizing perfect circles technique, two incisions were made over the distal aspect of the nail over the locking poles. These were both drilled, measured, and then screws for appropriate length were inserted. At this point, the entire construct was examined fluoroscopically. Both fracture reduction and hardware placement were satisfactory. The wounds were copiously irrigated. A deep tissue was approximated using 0 Vicryl. Subcutaneous tissue was approximated using 2-0 Vicryl. The skin was closed using 3-0 nylon. Sterile dressings were placed. The patient was extubated and transferred to recovery room in stable condition. Sai CORDERO/[id number]
[2017-03-14 09:31] LABS: BASOPHIL 0.5 % (0-2.0); EOSINOPHIL 1.8 % (0-4.5); MCH 29.9 pg (25.7-33.7); MCHC 33.8 g/dl (32.0-36.0); MEAN CELL VOLUME 88.3 fl (80-96); MEAN PLT VOLUME 8.5 fl (7.5-11.1); PLATELET COUNT 157 K/MM3 (134-434); RDW 13.6 % (11.6-15.6)
[2017-03-14] MEDS ORDERED: PT OWN MED DRAWER 7, Y5N ONE (09:36)
[2017-03-14 09:37] LABS: ANION GAP 6 (8-16); CO2 28 mmol/L (22-28); CREATININE 0.8 mg/dl (0.6-1.3); GLUCOSE,RANDOM 105 mg/dl (74-106)
[2017-03-14] MEDS: HYDROCHLOROTHIAZIDE 25 MG TABLET (FP) PO SCH (09:45)
[2017-03-14] MEDS: CALCIUM 500MG/VIT-D 200 UNITS COMBO TABLET (FP) PO SCH ×2 (09:45→21:31)
[2017-03-14] MEDS: MESALAMINE 800 MG TABLET.DR PO SCH (09:46)
[2017-03-14] MEDS: PANTOPRAZOLE 40 MG TABLET (FP) PO SCH (09:46)
[2017-03-14] MEDS: MAGNESIUM OXIDE 400 MG TABLET (FP) PO SCH (09:46)
[2017-03-14] MEDS: CITALOPRAM HYDROBROMIDE 20 MG TABLET (FP) PO SCH (09:46)
[2017-03-14] MEDS: ENOXAPARIN NA (PORCINE) 30 MG/0.3 ML DISP.SYRIN SQ SCH ×2 (09:46→21:30)
[2017-03-14] MEDS ORDERED: POTASSIUM CHLORIDE TABS 20 MEQ TABLET.ER (FP) PO ONE (10:15)
[2017-03-14] MEDS: HYDROmorphone HCL CARPU-JECT 1 MG/1 ML DISP.SYRIN IVPUSH PRN (10:54)
[2017-03-14] MEDS: FE POLYSAC/CYANOCOBAL/FA COMBO CAPSULE PO SCH ×2 (10:57→11:29)
[2017-03-14] MEDS: KCL 10 MEQ IVPB 10 MEQ/100 ML INFUS.BAG IVPB SCH ×2 (10:59→11:31)
[2017-03-14] MEDS ORDERED: KCL 10 MEQ IVPB 10 MEQ/100 ML INFUS.BAG IVPB SCH (11:30)
[2017-03-14] MEDS ORDERED: SODIUM CHLORIDE IVPB ONE (12:00)
[2017-03-14] MEDS ORDERED: POTASSIUM PHOSPHATE IVPB ONE (12:00)
--- NOTE | 2017-03-14 12:20 | PN ---
Physical Exam: SUBJECTIVE: Patient seen and examined, reports pain to the left lower extremity upon movement, denies any paresthesia to the extremity. OBJECTIVE: patient is a 71 year old female, with a significant past medical history of hypertension, GERD, and MR. Patient was admitted from the emergency department s/p mechanical fall, left femur IM nail post op day 3. Vital Signs Period Temp Pulse Resp BP Sys/Gross Pulse Ox Last 24 Hr 98.1 F-100.0 F 95-106 17-19 107-118/55-62 90-97 GENERAL: The patient is awake, alert, and fully oriented, in no acute distress. HEAD: Normal with no signs of trauma. EYES: PERRL, extraocular movements intact, sclera anicteric, conjunctiva clear. No ptosis. ENT: Ears normal, nares patent, oropharynx clear without exudates, moist mucous membranes. NECK: Trachea midline, full range of motion, supple. LUNGS: Breath sounds equal, clear to auscultation bilaterally, no wheezes, no crackles, no accessory muscle use. HEART: Regular rate and rhythm, S1, S2 without murmur, rub or gallop. ABDOMEN: Soft, nontender, nondistended, normoactive bowel sounds, no guarding, no rebound, no hepatosplenomegaly, no masses. EXTREMITIES: 2+ pulses, warm, well-perfused, no edema. LEFT LOWER EXTREMITY: aguacel dressing, less than three second capillary refill , + 3 pedal pulse NEUROLOGICAL: Cranial nerves II through XII grossly intact. Normal speech, gait not observed. PSYCH: Normal mood, normal affect. SKIN: Warm, dry, normal turgor, no rashes or lesions noted Laboratory Results - last 24 hr 03/13/17 03/13/17 03/14/17 18:00 18:00 08:00 WBC 9.6 RBC 2.94 L Hgb 8.5 L Hct 25.7 L MCV 87.4 MCH 28.9 MCHC 33.1 RDW 13.9 Plt Count 185 D MPV 8.4 Neutrophils % 80.5 Lymphocytes % 11.3 Monocytes % 6.8 Eosinophils % 1.0 Basophils % 0.4 Sodium Potassium Chloride Carbon Dioxide Anion Gap BUN Creatinine Random Glucose Calcium Phosphorus 1.6 L Magnesium 2.0 D 03/14/17 03/14/17 08:05 08:05 WBC 7.0 RBC 2.59 L Hgb 7.7 L Hct 22.9 L MCV 88.3 MCH 29.9 MCHC 33.8 RDW 13.6 Plt Count 157 MPV 8.5 Neutrophils % 76.0 Lymphocytes % 14.5 D Monocytes % 7.2 Eosinophils % 1.8 Basophils % 0.5 Sodium 136 Potassium 3.0 L D Chloride 102 Carbon Dioxide 28 Anion Gap 6 L BUN 12 D Creatinine 0.8 D Random Glucose 105 Calcium 8.0 L Phosphorus Magnesium 2.0 Active Medications Generic Name Dose Route Start Last Admin Trade Name Freq PRN Reason Stop Dose Admin Acetaminophen 650 mg 03/12/17 00:29 03/13/17 22:54 Tylenol - PO 650 mg Q6H PRN Administration FEVER OR PAIN Artificial Tears 1 drop 03/12/17 00:09 Artificial Tears OU TID PRN DRY EYES B12/Folic Ac/Intrin Fact/Iron/Vit C 1 each 03/13/17 10:00 03/14/17 11:29 Niferex-150 Forte - PO 1 each DAILY MARIAM Administration Calcium Carbonate/Cholecalciferol 1 tab 03/12/17 22:30 03/14/17 09:45 Os-Wally 500+D - PO 1 tab BID MARIAM Administration Citalopram Hydrobromide 20 mg 03/12/17 10:00 03/14/17 09:46 Celexa - PO 20 mg DAILY MARIAM Administration Enoxaparin Sodium 30 mg 03/12/17 22:30 03/14/17 09:46 Lovenox - SQ 30 mg Q12H MARIAM Administration Hydrochlorothiazide 25 mg 03/12/17 10:00 03/14/17 09:45 Hctz - PO 25 mg DAILY MARIAM Administration Hydromorphone HCl 1 mg 03/10/17 23:51 03/14/17 10:54 Dilaudid Injection - IVPUSH 1 mg Q4H PRN Administration PAIN Potassium Phosphate 21 mm/ 250 mls @ 62.5 mls/hr 03/14/17 12:00 Sodium Chloride IVPB 03/14/17 15:59 ONCE ONE Magnesium Oxide 400 mg 03/12/17 10:00 03/14/17 09:46 Mag-Ox - PO 400 mg DAILY MARIAM Administration Mesalamine 800 mg 03/12/17 10:00 03/14/17 09:46 Asacol Hd - PO 800 mg DAILY MARIAM Administration Pantoprazole Sodium 40 mg 03/12/17 10:00 03/14/17 09:46 Protonix - PO 40 mg DAILY MARIAM Administration Microbiology 03/10/17 21:20 Urine - Urine [place] Urine Culture - Final NO GROWTH OBTAINED ASSESSMENT/PLAN: 1) *Right mid-shaft femur fracture, s/p right ORIF, 03/11/17,POD#3 - d/c iv dilaudid, start oxycodone 5mg q4h for moderate pain and tylenol 650mg for minimal pain - ortho,Dr Shelby consulted following - daily physical therapy - incentive spirometer and scd 2) heme acute blood loss anemia - hgb 7.7 patient is asymptomatic close following, repeat hgb at 1800, if less than transfuse - start iron supplements 3) card hypertension - b/p stable resume hctz 4) GI GERD - continue protonix f/e/n hypokalmia - potassium 3.0, kci 10meq x 1, kci 40meq po, and kphos gtt ordered, repeat potassium at 1800 - regular diet PPX - sqh Dispo- Will need STR placement prior to discharge. Visit type - Emergency Visit Emergency Visit: Yes ED Registration Date: 03/10/17 Care time: The patient presented to the Emergency Department on the above date and was hospitalized for further evaluation of their emergent condition. - New Patient This patient is new to me today: Yes Date on this admission: 03/14/17 - Critical Care Critical Care patient: No - Discharge Referral Referred to [facility] Med P.C.: No
[2017-03-14] MEDS: SENNOSIDES/DOCUSATE COMBO (SENNA PLUS) TABLET (UD) PO SCH ×2 (13:10→21:30)
[2017-03-14] MEDS: FERROUS SO4 325 MG TABLET (FP) PO SCH ×2 (13:30→21:29)
[2017-03-14 18:29] LABS: ANION GAP 6 (8-16); CO2 28 mmol/L (22-28); CREATININE 0.8 mg/dl (0.6-1.3); GLUCOSE,RANDOM 111 mg/dl (74-106)
[2017-03-14 18:31] LABS: BASOPHIL 0.3 % (0-2.0); EOSINOPHIL 1.4 % (0-4.5); MCH 29.1 pg (25.7-33.7); MCHC 33.2 g/dl (32.0-36.0); MEAN CELL VOLUME 87.6 fl (80-96); MEAN PLT VOLUME 7.7 fl (7.5-11.1); NEUTROPHILS 77.1 % (42.8-82.8); PLATELET COUNT 198 K/MM3 (134-434); RDW 13.8 % (11.6-15.6)
[2017-03-14] MEDS: oxyCODONE HCL 5 MG TABLET PO PRN (20:00)
[2017-03-15] MEDS: ACETAMINOPHEN 325 MG TABLET (FP) PO PRN (00:36)
[2017-03-15 05:56] VITALS: BP 110/70; PULSE 75; TEMP 98.6
[2017-03-15] MEDS: oxyCODONE HCL 5 MG TABLET PO PRN ×2 (06:25→11:46)
[2017-03-15] MEDS: FERROUS SO4 325 MG TABLET (FP) PO SCH (08:17)
[2017-03-15] MEDS ORDERED: PT OWN MED DRAWER 7, Y5N ONE (09:14)
[2017-03-15] MEDS: CITALOPRAM HYDROBROMIDE 20 MG TABLET (FP) PO SCH (09:43)
[2017-03-15] MEDS: CALCIUM 500MG/VIT-D 200 UNITS COMBO TABLET (FP) PO SCH (09:43)
[2017-03-15] MEDS: PANTOPRAZOLE 40 MG TABLET (FP) PO SCH (09:43)
[2017-03-15] MEDS: MAGNESIUM OXIDE 400 MG TABLET (FP) PO SCH (09:43)
[2017-03-15] MEDS: SENNOSIDES/DOCUSATE COMBO (SENNA PLUS) TABLET (UD) PO SCH (09:43)
[2017-03-15] MEDS: ENOXAPARIN NA (PORCINE) 30 MG/0.3 ML DISP.SYRIN SQ SCH (09:43)
[2017-03-15] MEDS: MESALAMINE 800 MG TABLET.DR PO SCH (09:44)
[2017-03-15] MEDS: HYDROCHLOROTHIAZIDE 25 MG TABLET (FP) PO SCH (09:46)
[2017-03-15] MEDS: FE POLYSAC/CYANOCOBAL/FA COMBO CAPSULE PO SCH (09:48)
--- NOTE | 2017-03-15 10:12 | PN ---
Progress Note (short form) - Note Progress Note: Feeling well. He does not want to do physical therapy. Wounds look good. Neurovascular intact distally. No Tenderness. Continue physical therapy. Rehabilitation placement. DVT prophylaxis.
--- NOTE | 2017-03-15 10:44 | DS ---
Physical Exam: SUBJECTIVE: Patient seen and examined, reports pain to the right lower extremity upon movement, denies any paresthesia to the right lower extremity. OBJECTIVE: patient is a 71 year old female, with a significant past medical history of hypertension, GERD, and MR, who presents to the emergency department s/p witnessed mechanical injury earlier this evening. Per sister, the patient was walking down 2 steps, when she missed a step, twisted her right leg, but never fell because she caught the patient before she hit the floor. The patient reports severe right leg/thigh/ hip pain, which is mildly alleviated when bending her knee and laying down. Patient was unable to ambulate s/p injury. Patient denies any head trauma, LOC, changes in vision, neck or back pain. Sister reports patient has a history of a femur fracture(unsure which side), which had to get surgically repaired 2 years ago. Patient denies any fever, chills, headache, dizziness, or lightheadedness. She denies any chest pain, shortness of breath, diaphoresis, or palpitations. She denies any abdominal pain , nausea, vomiting. Vital Signs Period Temp Pulse Resp BP Sys/Gross Pulse Ox Last 24 Hr 98.2 F-98.6 F 75-89 16-18 99-110/48-90 92-95 PHYSICAL EXAM GENERAL: The patient is awake, alert, and fully oriented, in no acute distress. HEAD: Normal with no signs of trauma. EYES: PERRL, extraocular movements intact, sclera anicteric, conjunctiva clear. ENT: Ears normal, nares patent, oropharynx clear without exudates, moist mucous membranes. NECK: Trachea midline, full range of motion, supple. LUNGS: Breath sounds equal, clear to auscultation bilaterally, no wheezes, no crackles, no accessory muscle use. HEART: Regular rate and rhythm, S1, S2 without murmur, rub or gallop. ABDOMEN: Soft, nontender, nondistended, normoactive bowel sounds, no guarding, no rebound, no hepatosplenomegaly, no masses. EXTREMITIES: 2+ pulses, warm, well-perfused, no edema. RIGHT LOWER EXTREMITY: aguacel dressing intact to right lateral proximal extremity, clean dry and intact, + 3 pedal pulse, less than 3 second capillary refill,trace edema, scd/maximiliano noted NEUROLOGICAL: Cranial nerves II through XII grossly intact. Normal speech, gait not observed. PSYCH: Normal mood, normal affect. SKIN: Warm, dry, normal turgor, no rashes or lesions noted. LABS Laboratory Results - last 24 hr 03/14/17 03/14/17 03/14/17 08:00 18:00 18:00 WBC 8.0 RBC 2.76 L Hgb 8.0 L Hct 24.1 L MCV 87.6 MCH 29.1 MCHC 33.2 RDW 13.8 Plt Count 198 D MPV 7.7 Neutrophils % 77.1 Lymphocytes % 14.5 Monocytes % 6.7 Eosinophils % 1.4 Basophils % 0.3 Sodium 135 L Potassium 3.7 D Chloride 101 Carbon Dioxide 28 Anion Gap 6 L BUN 12 Creatinine 0.8 Random Glucose 111 H Calcium 8.0 L Phosphorus 1.6 L HOSPITAL COURSE: Patient was admitted to the hospital for a right mid-shaft femur fracture, s/ p right ORIF, 03/11/17,POD#4, Dr Burns, pain was adequately managed with oxycodone 5mg q4h for moderate pain and tylenol 650mg for minimal pain, patient was followed by orthopedist, Dr Burns throughout the admission. daily physical therapy was continued throughout admission. patient was noted to have acute blood loss anemia - hgb 8.0, patient is asymptomatic close following, and patient was placed on BID iron supplements. patient has past medical history of hypertension and hctz was resumed on post operatively day 3. Admission was notable for hypokalemia and potassium was repleted, patient was started on daily potassium supplements. PLAN - discharge to SNF for short term rehab - continue potassium 20meq daily - repeat bmp within 3 days Date of Admission:03/10/17 Date of Discharge: 03/15/17 Minutes to complete discharge: 45 Discharge Summary Reason For Visit: LEG INJURY Current Active Problems Right femoral shaft fracture (Acute) Condition: Improved - Instructions Diet, Activity, Other Instructions: - continue all medications as prescribed - repeat basic metabolic profile (BMP) within 3 days Post-op Instructions Call the office for a follow-up appointment in 1 week after discharge from rehab Apply Graduated Compression Stockings (TEDs) to both lower extremities- remove daily for hygiene ONLY Apply cold packs to affected area for 15 minutes every 2 hours. Patient may ambulate as tolerated-encourage self care (at least every 2- 3 hours while awake) with walker or cane Maintain Aquacel (waterproof) dressing to operative wound (will be removed by surgeon at first office visit) Shower with Aquacel dressing in place-if Aquacel integrity compromised, remove and apply dry sterile dressing and notify Orthopedist. DO NOT SHOWER unless Orthopedists approves without Aquacel dressing CONTACT THE OFFICE FOR ANY CHANGE IN YOUR CONDITION (for example-fever greater than 102 degrees,excessive bleeding from operative site, purulent drainage, severe swelling or pain) GO TO THE EMERGENCY ROOM IF THERE IS A MEDICAL EMERGENCY * If you have any questions, please do not hesitate to call the office Referrals: Rodrigo Flores MD [Staff Physician] - [facility] - Home Medications Comprehensive Discharge Medication List: Ambulatory Orders C/Sourcherry/Celery/Grape Seed [Tart Manzano Capsule] 2 each PO DAILY 03/10/17 Cholecalciferol (Vitamin D3) [Vitamin D3] 2,000 unit PO DAILY 03/10/17 Citalopram Hydrobromide [Citalopram HBr] 20 mg PO DAILY 03/10/17 Citrucel 03/10/17 Hydrochlorothiazide 25 mg PO DAILY 03/10/17 Hypromellose 0.5% Opth Soln [Artificial Tears] 1 - 2 drop OP DAILY 03/10/17 Magnesium Oxide [Magnesium] 400 mg PO DAILY 03/10/17 Mesalamine [Apriso] 4 cap PO DAILY 03/10/17 Omeprazole 40 mg PO DAILY 03/10/17 This patient is new to me today: No Emergency Visit: Yes ED Registration Date: 03/10/17 Care time: The patient presented to the Emergency Department on the above date and was hospitalized for further evaluation of their emergent condition. Critical Care patient: No - Discharge Referral Referred to [facility] No
[2017-03-15] MEDS ORDERED: POTASSIUM CHLORIDE TABS 20 MEQ TABLET.ER (FP) PO SCH (11:45)
== END 2017-03-15 11:48 | DRG 481 ==
LOC: FER 19:33 → FM/S 22:52
PROVIDERS: ADMIT Internal Medicine; ATTEND Nurse Practitioner Family
PROC: 0QS806Z Reposition Right Femoral Shaft with Intramedullary Internal Fixation Device, Open Approach (ICD-10-PCS; principal; 2017-03-11 14:58)
DX: S72.321A Displaced transverse fracture of shaft of right femur, initial encounter for closed fracture (principal); D62 Acute posthemorrhagic anemia; I10 Essential (primary) hypertension; K21.9 Gastro-esophageal reflux disease without esophagitis; I34.0 Nonrheumatic mitral (valve) insufficiency; D72.828 Other elevated white blood cell count; R45.1 Restlessness and agitation; F70 Mild intellectual disabilities; E83.42 Hypomagnesemia; E87.6 Hypokalemia; W10.8XXA Fall (on) (from) other stairs and steps, initial encounter; Y93.89 Activity, other specified; Y92.098 Other place in other non-institutional residence as the place of occurrence of the external cause
CPT/HCPCS: 36415; 71010-TC; 73523-TC; 73552-TC-RT; 76001-TC; 80048; 80053; 81003; 81015; 82550; 83735; 84100; 84484; 85025; 85027; 85610; 86850; 86900; 86901; 87040; 87086; 93005; 94760; 97116-GP; 97161-GP; 99283-25; J1644